=== PATIENT | female | born 1960 | race Caucasian/White ===

== ENCOUNTER 2017-11-21 13:50 | Emergency (ER) | payer MEDICAID, OTHER ==
--- NOTE | 2017-11-21 15:51 | EDPHY ---
H & P Stated Complaint: r lumbar pin radiating into r lef since monday Time Seen by Provider: 11/21/17 15:50 HPI/ROS: HPI: This is a 57-year-old female who presents with Chief Complaint: r lumbar pin radiating into r leg since Monday Location: Right flank Quality: Pain Duration: Since Monday Signs and Symptoms: No bleeding, no radiation, no numbness, no weakness, no tingling, no incontinence, + decreased range of motion, no swelling, no pain, no fever, no rash Timing: Worse over the last 24 hr Severity: 03/23 Context: Patient reports that greater than 10 years ago she had a history of a kidney stone on the right side that resulted in hospitalization due to an infection in her kidney. She reports that she had have some type of surgery but is unsure of the procedure name. Monday morning she woke up with a dull aching right flank pain that was nonradiating in nature. She denies any heavy lifting/strenuous exercise or activity. Patient denies any dysuria/hematuria/ vomiting/diarrhea. Patient reports that yesterday evening the pain worsened in intensity and is now moderate, constant and worsened with movement. She has tried [id number] pain medications without any relief. Her appetite is decreased but she is able to eat and drink without difficulty. She does report some nausea. No history of back problems. Modifying Factors: See above Comment: ROS: see HPI Constitutional: No fever, no chills, no weight loss Eyes: No blurred vision Respiratory: No shortness of breath, no cough Cardiovascular: No chest pain Gastrointestinal: No nausea, no vomiting no diarrhea Genitourinary: No dysuria Extremities: No myalgias Neurologic: No weakness, no numbness Skin: No rashes Hematologic: No bruising, no bleeding MEDICAL/SURGICAL/SOCIAL HISTORY: Medical history: Pyelonephritis. Kidney stones. Takes metformin. Surgical history: Cholecystectomy, appendectomy Social history: Employed. CONSTITUTIONAL: Moderate distress due to discomfort well-appearing middle-aged female, awake and alert, no obvious distress HEENT: Atraumatic and normocephalic. NECK: supple, no midline tenderness, flexion 45 degrees, extension 45 degrees, right and left lateral flexion 45 degrees. No meningismus. Cardiovascular: Normal S1/S2, regular rate, regular rhythm, without murmur rub or gallop. PULMONARY/CHEST: Symmetrical and nontender. no crepitus. Clear to auscultation bilaterally. Good air movement. No accessory muscle usage. ABDOMEN: Soft, nondistended, reproducible right flank tenderness, + right CVA tenderness. Bowel sounds hypoactive. No peritoneal signs. PELVIC: no pain with rocking; bilateral hips flexion 125 degrees, extension 30 degrees, with no pain internal rotation and no pain external rotation. BACK: No midline tenderness, no paraspinous spasm, deep tendon reflexes 2/2, no pain with straight leg raise, No foot drop. Achilles reflexes are equal bilaterally. Able to walk on heels and toes without difficulty. EXTREMITIES: 2/2 pulses, strength 5/5, no deformities, no clubbing, no cyanosis or edema. NEUROLOGICAL: no focal neuro deficits. GCS 15. Light touch sensation intact. SKIN: Warm and dry, no erythema. no rash. Good capillary refill. Source: Patient Exam Limitations: No limitations - Personal History Current Tetanus/Diphtheria Vaccine: Yes - Medical/Surgical History Hx Asthma: No Hx Chronic Respiratory Disease: No Hx Diabetes: Yes Hx Cardiac Disease: No Hx Renal Disease: No Hx Cirrhosis: No Hx Alcoholism: No Hx HIV/AIDS: No Hx Splenectomy or Spleen Trauma: No Other PMH: pyelonephritis - Social History Smoking Status: Former smoker Constitutional: Initial Vital Signs Temperature (C) 37.3 C 11/21/17 13:54 Heart Rate 91 11/21/17 13:54 Respiratory Rate 17 11/21/17 13:54 Blood Pressure 172/106 H 11/21/17 13:54 O2 Sat (%) 94 11/21/17 13:54 O2 Delivery Mode Room Air Allergies/Adverse Reactions: Penicillins Allergy (Verified 11/21/17 13:54) Home Medications: Medication Instructions Recorded Cyclobenzaprine [Flexeril 10 MG 10 mg PO TID PRN #15 tab 11/21/17 (*)] Metformin HCl 11/21/17 oxyCODONE/APAP 5/325 [Percocet 1 - 2 tab PO Q4H PRN #10 tab 11/21/17 5/325 (*)] Medical Decision Making - Diagnostics Imaging Results: Imaging Impressions Abdomen/Pelvis CT 11/21/17 16:00 Impression: 1. No evidence of renal calculus or obstruction. 2. Increased exophytic mass versus complex cyst arising from the inferior right kidney. Further characterization by CT or MRI (renal mass protocol) is recommended. 3. Mild hepatic steatosis. Findings were communicated by telephone with Dr. Suri Strauss at 11/21/2017 16 :54 ED Course/Re-evaluation: Labs, urinalysis, IV fluids, IV medications, CT abdomen and pelvis scan ordered Given 1 L normal saline, IV morphine 4 mg and IV Toradol upon arrival Vital signs reviewed and stable with no systemic signs. 1645: Urinalysis shows blood but no signs of infection. Labs reviewed and show no leukocytosis. Creatinine 0.8. 1700: Called by radiologist who advised that CT scan shows no evidence of stone. Surgically absent gallbladder and appendix. There is a renal mass that has increased since 2008 on the bottom right portion but it is less than 3 cm. Recommended outpatient MRI protocol follow-up nephrology. 1714: Reassessed patient who reports relief of pain. Offered to obtain imaging of her lumbar and thoracic spine and patient politely declines at this time due to improvement. It was explained to her the results of the CT scan showing a renal mass and need for follow-up. Copy of the CT report given to patient. Ambulatory at discharge. No signs of neurovascular compromise/tenting of skin/compartment syndrome/ extremities and joints examined above and below area of concern and are neurovascularly intact. This patient was seen under the supervision of my secondary supervising physician. I evaluated care for this patient independently. Differential Diagnosis: Flank pain including but not limited to musculoskeletal causes, kidney stone, pyelonephritis, shingles, and intra-abdominal causes such as diverticulitis and appendicitis. - Data Points Laboratory Results: Laboratory Results 11/21/17 16:10 11/21/17 16:10 11/21/17 11/21/17 11/21/17 16:22 16:10 16:10 WBC RBC Hgb Hct MCV MCH MCHC RDW Plt Count MPV Neut % (Auto) Lymph % (Auto) Sargent % (Auto) Eos % (Auto) Baso % (Auto) Nucleat RBC Rel Count Absolute Neuts (auto) Absolute Lymphs (auto) Absolute Monos (auto) Absolute Eos (auto) Absolute Basos (auto) Absolute Nucleated RBC Immature Gran % Immature Gran # Sodium 146 mEq/L H mEq/L (135-145) Potassium 4.4 mEq/L mEq/L (3.5-5.2) Chloride 106 mEq/L mEq/L (97-110) Carbon Dioxide 25 mEq/l mEq/l (22-31) Anion Gap 15 mEq/L mEq/L (8-16) BUN 18 mg/dL mg/dL (7-23) Creatinine 0.8 mg/dL mg/dL (0.6-1.0) Estimated GFR > 60 Glucose 90 mg/dL mg/dL (70-100) Calcium 9.8 mg/dL mg/dL (8.5-10.4) Beta HCG, Qual NEGATIVE Urine Color YELLOW Urine Appearance MODERATELY TURBID Urine pH 7.0 (5.0-7.5) Ur Specific Mart 1.021 (1.002-1.030) Urine Protein NEGATIVE (NEGATIVE) Urine Ketones NEGATIVE (NEGATIVE) Urine Blood 2+ H (NEGATIVE) Urine Nitrate NEGATIVE (NEGATIVE) Urine Bilirubin NEGATIVE (NEGATIVE) Urine Urobilinogen NEGATIVE EU EU (0.2-1.0) Ur Leukocyte Esterase NEGATIVE (NEGATIVE) Urine RBC 10-15 /hpf H /hpf (0-3) Urine WBC NONE SEEN /hpf /hpf (0-3) Ur Epithelial Cells TRACE /lpf /lpf (NONE-1+) Amorphous Sediment PRESENT /hpf /hpf (NONE-1+) Urine Mucus TRACE /lpf /lpf (NONE-1+) Urine Glucose NEGATIVE (NEGATIVE) 11/21/17 16:10 WBC 8.89 10^3/uL 10^3/uL (3.80-9.50) RBC 5.52 10^6/uL H 10^6/uL (4.18-5.33) Hgb 17.1 g/dL H g/dL (12.6-16.3) Hct 48.3 % H % (38.0-47.0) MCV 87.5 fL fL (81.5-99.8) MCH 31.0 pg pg (27.9-34.1) MCHC 35.4 g/dL g/dL (32.4-36.7) RDW 12.8 % % (11.5-15.2) Plt Count 302 10^3/uL 10^3/uL (150-400) MPV 10.4 fL fL (8.7-11.7) Neut % (Auto) 61.9 % % (39.3-74.2) Lymph % (Auto) 28.1 % % (15.0-45.0) Sargent % (Auto) 6.1 % % (4.5-13.0) Eos % (Auto) 2.2 % % (0.6-7.6) Baso % (Auto) 1.1 % % (0.3-1.7) Nucleat RBC Rel Count 0.0 % % (0.0-0.2) Absolute Neuts (auto) 5.50 10^3/uL 10^3/uL (1.70-6.50) Absolute Lymphs (auto) 2.50 10^3/uL 10^3/uL (1.00-3.00) Absolute Monos (auto) 0.54 10^3/uL 10^3/uL (0.30-0.80) Absolute Eos (auto) 0.20 10^3/uL 10^3/uL (0.03-0.40) Absolute Basos (auto) 0.10 10^3/uL 10^3/uL (0.02-0.10) Absolute Nucleated RBC 0.00 10^3/uL 10^3/uL (0-0.01) Immature Gran % 0.6 % % (0.0-1.1) Immature Gran # 0.05 10^3/uL 10^3/uL (0.00-0.10) Sodium Potassium Chloride Carbon Dioxide Anion Gap BUN Creatinine Estimated GFR Glucose Calcium Beta HCG, Qual Urine Color Urine Appearance Urine pH Ur Specific Mart Urine Protein Urine Ketones Urine Blood Urine Nitrate Urine Bilirubin Urine Urobilinogen Ur Leukocyte Esterase Urine RBC Urine WBC Ur Epithelial Cells Amorphous Sediment Urine Mucus Urine Glucose Medications Given: Discontinued Medications Sodium Chloride (Ns) 1,000 mls @ 0 mls/hr IV ONCE ONE; Wide Open PRN Reason: Protocol Stop: 11/21/17 16:00 Last Admin: 11/21/17 16:51 Dose: 1,000 mls Ketorolac Tromethamine (Toradol) 30 mg IVP EDNOW ONE Stop: 11/21/17 16:00 Last Admin: 11/21/17 16:51 Dose: 30 mg Morphine Sulfate (Morphine) 4 mg IVP EDNOW ONE Stop: 11/21/17 16:01 Last Admin: 04/10/18 16:48 Dose: 4 mg Departure - Departure Disposition: Home, Routine, Self-Care Clinical Impression: Acute right flank pain, Renal mass, right Condition: Good Instructions: Thoracic Back Strain (ED) Additional Instructions: CT abdomen and pelvis scan today shows no signs of kidney stone, pyelonephritis. The test does show of right renal mass that has increased in size since 2008. It is recommended that you have an outpatient MRI protocol to further evaluate and follow up with Nephrology. Please refrain from any moderate activity or heavy lifting until all pain has resolved. Take Tylenol 650 mg every 4 hours and/or Ibuprofen 600 mg every 8 hours with food as needed for pain. Use Percocet every 6 hours as needed for severe/break through pain. Do not use Tylenol and Percocet concomitantly. Use Flexeril every 8 hr as needed for muscle spasms. Follow up with [facility] in 5-7 days if no improvement in symptoms at which time they will evaluate and recommend with you if conservative management versus x-ray versus MRI is indicated. Return to the ER immediately if you have new or worsening back pain, fevers/ chills, flu like symptoms, incontinence or inability to urinate or defecate, weakness, paralysis, or any other symptom that concerns you Referrals: [facility],. [Clinic] - 5-7 days, if not improved Rene Forte MD [Medical Doctor] - 5-7 days, call for appt. Stand Alone Forms: Work Excuse Prescriptions: Cyclobenzaprine [Flexeril 10 MG (*)] 10 mg PO TID PRN #15 tab PRN Reason: Spasms oxyCODONE/APAP 5/325 [Percocet 5/325 (*)] 1 - 2 tab PO Q4H PRN #10 tab PRN Reason: Pain, Severe
[2017-11-21] MEDS ORDERED: NS 1,000 ML IV ONE (15:59)
[2017-11-21] MEDS ORDERED: KETOROLAC 30 MG/1 ML SDV IVP ONE (15:59)
[2017-11-21 16:26] LABS: PLATELET COUNT 302 10^3/uL (150-400)
[2017-11-21 18:01] VITALS: BP 125/86
== END 2017-11-21 18:00 | disposition home or self-care (01) ==
DX: N28.89 Other specified disorders of kidney and ureter (principal); E11.9 Type 2 diabetes mellitus without complications; E86.9 Volume depletion, unspecified; Z79.84 Long term (current) use of oral hypoglycemic drugs
CPT/HCPCS: 96374; J1885; J2270

== ENCOUNTER 2018-07-31 14:32 | Emergency (ER) | payer MEDICAID ==
--- NOTE | 2018-07-31 14:55 | EDPHY ---
H & P Stated Complaint: twisted l knee 2 months ago Time Seen by Provider: 07/31/18 14:49 HPI/ROS: Chief Complaint: Left knee injury HPI: The patient presents to the ED with left knee pain which been present for the past 2 months since she twisted her knee. The patient continues to be ambulatory. She denies any acute numbness or weakness. Past medical history is significant for a right renal cancer which was removed with a partial nephrectomy several months ago. She is not receiving chemotherapy. The patient denies additional acute complaints. She denies any calf pain. She denies any shortness of breath. She denies any pleuritic chest pain REVIEW OF SYSTEMS: Neuro: no headache, numbness, weakness Musculoskeletal: as above Skin: no abrasion or lacerations Source: Patient Exam Limitations: No limitations - Personal History Current Tetanus Diphtheria and Acellular Pertussis (TDAP): Unsure - Medical/Surgical History Hx Asthma: No Hx Chronic Respiratory Disease: No Hx Diabetes: Yes Hx Cardiac Disease: No Hx Renal Disease: No Hx Cirrhosis: No Hx Alcoholism: No Hx HIV/AIDS: No Hx Splenectomy or Spleen Trauma: No Other PMH: pyelonephritis/ kidney cancer - Social History Smoking Status: Current some day smoker - Physical Exam Exam: Skin: No lacerations, No abrasion Back: No midline T/L/S pain Extremities: Tenderness to palpation along the anterior aspect of the left knee with a mild joint effusion. No joint warmth, no numbness, no weakness no additional complaints. No posterior calf tenderness present, no clinical evidence of DVT Neurological: A&Ox3, normal motor function, normal sensory exam Constitutional: Initial Vital Signs Temperature (C) 36.8 C 07/31/18 14:37 Heart Rate 96 07/31/18 14:37 Respiratory Rate 17 07/31/18 14:37 Blood Pressure 173/100 H 07/31/18 14:37 O2 Sat (%) 96 07/31/18 14:37 O2 Delivery Mode Room Air Allergies/Adverse Reactions: Penicillins Allergy (Verified 07/31/18 14:36) Home Medications: Medication Instructions Recorded Metformin HCl 11/21/17 Medical Decision Making - Diagnostics Imaging Results: Imaging Impressions Knee X-Ray 07/31/18 14:52 Impression: 1. No acute osseous abnormality. If symptoms persist, consider MRI evaluation. 2. Mild narrowing of the medial compartment. Small quadriceps enthesophyte. ED Course/Re-evaluation: The patient presents to the ED with chronic knee pain following the injury 2 months ago. The patient's x-rays demonstrate no evidence of an obvious fracture. The patient is ambulatory. She will be referred to our on-call orthopedic surgeon for further evaluation. Differential Diagnosis: Differential diagnosis considered includes fracture, sprain, dislocation Departure - Departure Disposition: Home, Routine, Self-Care Clinical Impression: Strain of left knee Condition: Good Instructions: Musculoskeletal Pain (ED) Additional Instructions: 1. Your x-ray demonstrates no evidence of an obvious fracture. 2. Please schedule a follow-up appointment with orthopedic surgeon as you may have injured a tendon or meniscus. This may require further imaging studies to evaluate. 3. Ice 20 min a time several times a day. 4. Tylenol as needed for pain. Referrals: Yash Beckett MD [Medical Doctor] - As per Instructions
[2018-07-31 15:58] VITALS: BP 166/100
== END 2018-07-31 15:57 | disposition home or self-care (01) ==
DX: S83.92XD Sprain of unspecified site of left knee, subsequent encounter (principal)